=== PATIENT | male | born 1960 | race Caucasian/White ===

== ENCOUNTER 2020-11-13 11:30 | Inpatient (IN) | payer BC ==
[2020-12-01 10:41] VITALS: BMI 27.8
[2020-12-02] MEDS ORDERED: Acetaminophen 500 MG TAB ONE (06:29)
[2020-12-02] MEDS ORDERED: cefOXitin Sodium/Dextrose 2 GM/50 ML BAG ONE (06:29)
[2020-12-02] MEDS ORDERED: Ketorolac Tromethamine 30 MG/ML VIAL ONE ×2 (06:29→10:09)
[2020-12-02] MEDS ORDERED: Lidocaine 1% w/Epinephrine 1:100K 20 ML VIAL ONE ×2 (06:36→08:34)
[2020-12-02] MEDS ORDERED: Bupivacaine 0.25% HCL 30 ML VIAL ONE (06:36)
[2020-12-02] MEDS ORDERED: Fentanyl 100 MCG/2 ML VIAL ONE ×3 (07:03→08:38)
[2020-12-02] MEDS ORDERED: Midazolam HCl 2 mg/2 ml Vial ONE (07:25)
[2020-12-02] MEDS ORDERED: Lidocaine 2% w/Epinephrine 1:200K 20 ML VIAL ONE (07:26)
[2020-12-02] MEDS ORDERED: HYDROmorphone 2 MG/ML VIAL SLOW IVP PRN (07:33)
[2020-12-02] MEDS ORDERED: Morphine Sulfate 2 MG/ML SYRINGE SLOW IVP PRN (07:33)
[2020-12-02] MEDS ORDERED: Promethazine HCl 25 MG/ML VIAL SLOW IVP PRN (07:33)
[2020-12-02] MEDS ORDERED: Promethazine HCl 25 MG/ML VIAL IM PRN ×2 (07:33→11:20)
[2020-12-02] MEDS ORDERED: Ondansetron HCl/PF 4 MG/2 ML Vial IVP PRN (07:33)
[2020-12-02] MEDS ORDERED: PACU-Morphine 4MG/ML VIAL SLOW IVP PRN (07:33)
[2020-12-02] MEDS ORDERED: Fentanyl 250 MCG/5 ML VIAL ONE (08:39)
[2020-12-02] MEDS ORDERED: ceFOXitin 1 GM VIAL ONE (09:45)
[2020-12-02] MEDS ORDERED: Dexamethasone 20 MG/5 ML VIAL ONE (10:09)
[2020-12-02] MEDS ORDERED: Lidocaine 1% PF 5 ML VIAL ONE (10:09)
[2020-12-02] MEDS ORDERED: Glycopyrrolate 0.2 MG/ML 5 ML SYRINGE ONE (10:09)
[2020-12-02] MEDS ORDERED: PHENYLEPHRINE-NS 100 MCG/ML 10 ML SYRINGE ONE (10:09)
[2020-12-02] MEDS ORDERED: PROPOFOL 200 MG/20 ML VIAL ONE (10:09)
[2020-12-02] MEDS ORDERED: Rocuronium Bromide 10 MG/ML (10ML VIAL) ONE (10:09)
[2020-12-02] MEDS ORDERED: Metoprolol Tartrate 5 MG/5 ML VIAL ONE (10:09)
[2020-12-02] MEDS ORDERED: Ondansetron PF 4 MG/2 ML Vial ONE (10:09)
[2020-12-02] MEDS ORDERED: Bupivacaine HCl 0.5%/Epinephrine 1:200,000/PF 30 ml Vial ONE (10:11)
[2020-12-02] MEDS ORDERED: Iopamidol 370 76% 100 ML VIAL ONE (11:00)
[2020-12-02] MEDS ORDERED: hydrALAZINE 20 MG/ML VIAL SLOW IVP PRN (11:20)
[2020-12-02] MEDS ORDERED: Morphine 4 MG/ML VIAL SLOW IVP PRN (11:20)
[2020-12-02] MEDS ORDERED: Morphine 2 MG/ML VIAL SLOW IVP PRN (11:20)
[2020-12-02] MEDS ORDERED: Ondansetron PF 4 MG/2 ML Vial IVP PRN (11:20)
[2020-12-02] MEDS ORDERED: Famotidine/PF 20 mg/2ml Vial SLOW IVP SCH (11:45)
[2020-12-02 15:28] LABS: #Eosinphils 0.1 thou/uL (0.0-0.7); #Lymphocytes 0.8 thou/uL (1.20-3.40); #Monocytes 0.5 thou/uL (0.11-0.59); #Neutrophils 15.3 thou/uL (1.40-6.50); %Eosinophils 0.3 % (0.0-10.0); %Lymphocytes 4.9 % (21.0-51.0); %Monocytes 2.9 % (0.0-10.0); %Neutrophils 91.9 % (42.0-75.0); Hemoglobin 13.2 g/dL (14.0-18.0); Mean Corpuscular HGB CONC 33.9 g/dL (32.0-36.0); Mean Corpuscular Hemoglobin 31.5 pg (27.0-31.0); Mean Corpuscular Volume 92.8 fL (78.0-98.0); Mean Platelet Volume 6.6 fL (7.4-10.4); Platelet Count 494 thou/uL (130-400); RBC Distribution Width 17.1 % (11.5-14.5); Red Blood Cell (RBC) Count 4.18 mill/uL (4.70-6.10); White Blood Cell (WBC) Count 16.6 thou/uL (4.8-10.8)
[2020-12-02 15:41] LABS: Anion Gap 12 mmol/L (10-20); BUN (Urea Nitrogen) 13 mg/dL (8.4-25.7); Calc. Creatinine Clearance 88 mL/min (70-130); Calcium 8.5 mg/dL (7.8-10.44); Carbon Dioxide 27 mmol/L (22-29); Chloride 104 mmol/L (98-107); Glucose 148 mg/dL (70-105); Potassium 4.4 mmol/L (3.5-5.1); Sodium 139 mmol/L (136-145)
[2020-12-02] MEDS: Ketorolac Tromethamine 30 MG/ML VIAL IVP SCH ×3 (17:35→23:36)
[2020-12-02] MEDS: D5 1/2 NS w/20 mEq KCL 1,000 ML IV SCH ×2 (17:46→19:44)
[2020-12-02] MEDS ORDERED: Nicotine 14 MG PATCH TD PRN (17:54)
[2020-12-02] MEDS: HYDROcodone/Acetaminophen 7.5/325 mg Tablet PO PRN (19:31)
[2020-12-02] MEDS: Famotidine/PF 20 mg/2ml Vial SLOW IVP SCH (19:34)
[2020-12-02] MEDS: Famotidine 20 MG TAB PO SCH (19:44)
[2020-12-02] MEDS ORDERED: Enoxaparin Sodium 40 MG/0.4 ML SYRINGE SC SCH (21:00)
[2020-12-03 03:01] LABS: Anion Gap 17 mmol/L (10-20); BUN (Urea Nitrogen) 13 mg/dL (8.4-25.7); Calc. Creatinine Clearance 83 mL/min (70-130); Carbon Dioxide 16 mmol/L (22-29); Chloride 106 mmol/L (98-107); Glucose 202 mg/dL (70-105); Potassium 4.1 mmol/L (3.5-5.1); Sodium 135 mmol/L (136-145)
[2020-12-03 03:01] LABS: #Lymphocytes 1.4 thou/uL (1.20-3.40); #Neutrophils 16.5 thou/uL (1.40-6.50); %Eosinophils 0.1 % (0.0-10.0); %Lymphocytes 7.3 % (21.0-51.0); %Neutrophils 87.6 % (42.0-75.0); Hemoglobin 10.2 g/dL (14.0-18.0); Mean Corpuscular HGB CONC 34.1 g/dL (32.0-36.0); Mean Corpuscular Hemoglobin 31.9 pg (27.0-31.0); Mean Corpuscular Volume 93.5 fL (78.0-98.0); Mean Platelet Volume 6.6 fL (7.4-10.4); Platelet Count 664 thou/uL (130-400); RBC Distribution Width 17.4 % (11.5-14.5); Red Blood Cell (RBC) Count 3.19 mill/uL (4.70-6.10); White Blood Cell (WBC) Count 18.9 thou/uL (4.8-10.8)
[2020-12-03] MEDS: D5 1/2 NS w/20 mEq KCL 1,000 ML IV SCH ×2 (03:52→18:30)
[2020-12-03] MEDS ORDERED: Sodium Chloride 0.9% 1,000 ML IV SCH (05:15)
[2020-12-03] MEDS: Ketorolac Tromethamine 30 MG/ML VIAL IVP SCH ×3 (05:22→18:29)
[2020-12-03] MEDS ORDERED: Promethazine HCl 25 MG/ML VIAL SLOW IVP PRN (06:16)
[2020-12-03] MEDS ORDERED: Ondansetron HCl/PF 4 MG/2 ML Vial IVP PRN (06:16)
[2020-12-03] MEDS ORDERED: Promethazine HCl 25 MG/ML VIAL IM PRN (06:16)
[2020-12-03 06:31] LABS: #Lymphocytes 1.1 thou/uL (1.20-3.40); #Monocytes 1.2 thou/uL (0.11-0.59); %Basophils 0.2 % (0.0-1.0); %Eosinophils 0.1 % (0.0-10.0); %Lymphocytes 6.9 % (21.0-51.0); %Monocytes 7.9 % (0.0-10.0); %Neutrophils 84.8 % (42.0-75.0); Hemoglobin 8.2 g/dL (14.0-18.0); Mean Corpuscular HGB CONC 33.8 g/dL (32.0-36.0); Mean Corpuscular Hemoglobin 31.9 pg (27.0-31.0); Mean Corpuscular Volume 94.2 fL (78.0-98.0); Mean Platelet Volume 6.3 fL (7.4-10.4); Platelet Count 478 thou/uL (130-400); RBC Distribution Width 16.9 % (11.5-14.5); Red Blood Cell (RBC) Count 2.58 mill/uL (4.70-6.10); White Blood Cell (WBC) Count 15.3 thou/uL (4.8-10.8)
[2020-12-03 06:35] LABS: Anion Gap 12 mmol/L (10-20); BUN (Urea Nitrogen) 14 mg/dL (8.4-25.7); Calc. Creatinine Clearance 78 mL/min (70-130); Calcium 7.5 mg/dL (7.8-10.44); Carbon Dioxide 22 mmol/L (22-29); Chloride 107 mmol/L (98-107); Glucose 158 mg/dL (70-105); Potassium 4.9 mmol/L (3.5-5.1); Sodium 136 mmol/L (136-145)
[2020-12-03] MEDS ORDERED: HYDROcodone/Acetaminophen 7.5/325 mg Tablet PO PRN (08:12)
[2020-12-03] MEDS ORDERED: Metoprolol Tartrate 5 MG/5 ML VIAL ONE ×2 (08:13→08:25)
[2020-12-03 09:03] LABS: CKMB 1.9 ng/mL (0-6.6); Troponin I 0.031 ng/mL (< 0.028)
[2020-12-03] MEDS ORDERED: PROPOFOL 200 MG/20 ML VIAL ONE (09:33)
[2020-12-03] MEDS ORDERED: PHENYLEPHRINE-NS 100 MCG/ML 10 ML SYRINGE ONE (09:33)
[2020-12-03] MEDS ORDERED: Lidocaine 1% PF 5 ML VIAL ONE (09:33)
[2020-12-03] MEDS ORDERED: Fentanyl 100 MCG/2 ML VIAL ONE (09:55)
[2020-12-03] MEDS ORDERED: Ketorolac Tromethamine 30 MG/ML VIAL ONE (14:46)
[2020-12-03] MEDS: Famotidine 20 MG TAB PO SCH ×2 (17:44→20:22)
[2020-12-03] MEDS: Famotidine/PF 20 mg/2ml Vial SLOW IVP SCH ×2 (17:44→20:23)
[2020-12-03] MEDS ORDERED: Metoprolol Tartrate 25 MG TAB PO SCH (19:15)
[2020-12-03] MEDS: Dextrose 5 %-0.45 % NaCl 1,000 ML IV SCH (20:13)
[2020-12-04] MEDS: Ketorolac Tromethamine 30 MG/ML VIAL IVP SCH ×5 (00:16→23:58)
[2020-12-04] MEDS: Dextrose 5 %-0.45 % NaCl 1,000 ML IV SCH ×4 (04:21→16:44)
[2020-12-04] MEDS ORDERED: Diltiazem HCl 125 MG, Admixture Fee 1 EACH in Sodium Chloride 0.9% 100 ML IVPB SCH (04:45)
[2020-12-04 05:41] LABS: #Basophils 0.1 thou/uL (0.0-0.2); #Lymphocytes 1.8 thou/uL (1.20-3.40); #Monocytes 0.8 thou/uL (0.11-0.59); #Neutrophils 8.7 thou/uL (1.40-6.50); %Basophils 0.6 % (0.0-1.0); %Eosinophils 0.2 % (0.0-10.0); %Lymphocytes 15.4 % (21.0-51.0); %Monocytes 6.8 % (0.0-10.0); Hemoglobin 8.3 g/dL (14.0-18.0); Mean Corpuscular Hemoglobin 32.6 pg (27.0-31.0); Mean Corpuscular Volume 93.2 fL (78.0-98.0); Mean Platelet Volume 6.8 fL (7.4-10.4); Platelet Count 481 thou/uL (130-400); Red Blood Cell (RBC) Count 2.56 mill/uL (4.70-6.10); White Blood Cell (WBC) Count 11.3 thou/uL (4.8-10.8)
[2020-12-04 05:50] LABS: Anion Gap 10 mmol/L (10-20); BUN (Urea Nitrogen) 11 mg/dL (8.4-25.7); Calc. Creatinine Clearance 123 mL/min (70-130); Calcium 8.1 mg/dL (7.8-10.44); Carbon Dioxide 23 mmol/L (22-29); Chloride 109 mmol/L (98-107); Glucose 122 mg/dL (70-105); Potassium 4.1 mmol/L (3.5-5.1); Sodium 138 mmol/L (136-145)
[2020-12-04] MEDS: Metoprolol Tartrate 25 MG TAB PO SCH ×2 (09:19→21:33)
[2020-12-04] MEDS: Famotidine 20 MG TAB PO SCH ×2 (09:19→21:32)
[2020-12-04] MEDS: Famotidine/PF 20 mg/2ml Vial SLOW IVP SCH (09:21)
[2020-12-04] MEDS ORDERED: Amiodarone 150 MG in Dextrose 5% in Water 100 ML IVPB SCH (10:15)
[2020-12-04] MEDS: Amiodarone 450 MG, Admixture Fee 1 EACH in Dextrose 5% in Water 250 ML IVPB SCH ×2 (11:22→21:37)
[2020-12-04] MEDS: Ferrous Sulfate 325 MG TAB PO SCH (16:41)
[2020-12-04] MEDS: HYDROcodone/Acetaminophen 7.5/325 mg Tablet PO PRN (21:35)
[2020-12-05 05:04] LABS: #Eosinphils 0.1 thou/uL (0.0-0.7); #Lymphocytes 1.2 thou/uL (1.20-3.40); #Monocytes 0.4 thou/uL (0.11-0.59); #Neutrophils 4.3 thou/uL (1.40-6.50); %Basophils 0.4 % (0.0-1.0); %Lymphocytes 19.8 % (21.0-51.0); %Monocytes 6.7 % (0.0-10.0); %Neutrophils 72.1 % (42.0-75.0); Hemoglobin 6.5 g/dL (14.0-18.0); Mean Corpuscular HGB CONC 34.9 g/dL (32.0-36.0); Mean Corpuscular Hemoglobin 32.4 pg (27.0-31.0); Mean Corpuscular Volume 92.9 fL (78.0-98.0); Mean Platelet Volume 6.6 fL (7.4-10.4); Platelet Count 329 thou/uL (130-400); RBC Distribution Width 16.5 % (11.5-14.5); Red Blood Cell (RBC) Count 2.01 mill/uL (4.70-6.10)
[2020-12-05 05:08] LABS: Anion Gap 11 mmol/L (10-20); BUN (Urea Nitrogen) 6 mg/dL (8.4-25.7); Calc. Creatinine Clearance 134 mL/min (70-130); Calcium 7.8 mg/dL (7.8-10.44); Carbon Dioxide 24 mmol/L (22-29); Chloride 106 mmol/L (98-107); Glucose 116 mg/dL (70-105); Potassium 3.8 mmol/L (3.5-5.1); Sodium 137 mmol/L (136-145)
[2020-12-05] MEDS: Ketorolac Tromethamine 30 MG/ML VIAL IVP SCH (05:42)
[2020-12-05] MEDS: Ferrous Sulfate 325 MG TAB PO SCH ×2 (09:33→17:16)
[2020-12-05] MEDS: Amiodarone 200 MG TAB PO SCH ×2 (09:34→21:15)
[2020-12-05] MEDS: Famotidine 20 MG TAB PO SCH ×2 (09:34→21:14)
[2020-12-05] MEDS ORDERED: Potassium Chloride 20 MEQ TAB PO SCH (17:00)
[2020-12-05] MEDS: Dextrose 5 %-0.45 % NaCl 1,000 ML IV SCH (17:03)
[2020-12-06 04:57] LABS: #Eosinphils 0.2 thou/uL (0.0-0.7); #Lymphocytes 1.4 thou/uL (1.20-3.40); #Monocytes 0.5 thou/uL (0.11-0.59); #Neutrophils 5.3 thou/uL (1.40-6.50); %Basophils 0.2 % (0.0-1.0); %Lymphocytes 18.8 % (21.0-51.0); Hemoglobin 7.4 g/dL (14.0-18.0); Mean Corpuscular Hemoglobin 33.1 pg (27.0-31.0); Mean Platelet Volume 7.1 fL (7.4-10.4); Platelet Count 361 thou/uL (130-400); Red Blood Cell (RBC) Count 2.23 mill/uL (4.70-6.10); White Blood Cell (WBC) Count 7.5 thou/uL (4.8-10.8)
[2020-12-06] MEDS: Amiodarone 200 MG TAB PO SCH (09:25)
[2020-12-06] MEDS: Ferrous Sulfate 325 MG TAB PO SCH (09:26)
[2020-12-06] MEDS: Famotidine 20 MG TAB PO SCH (09:26)
[2020-12-06 12:49] VITALS: BP 111/72; TEMP 98.6
== END 2020-12-06 13:31 | disposition home or self-care (01) | DRG 330 ==
LOC: EDSEX → MERGE 11-18 11:30 → SURG A 12-02 06:04 → 2NO 12-03 16:48
PROVIDERS: ADMIT Specialist; ATTEND Specialist
PROC: 0DBN0ZZ Excision of Sigmoid Colon, Open Approach (ICD-10-PCS; principal; 2020-12-02)
PROC: 0W3P8ZZ Control Bleeding in Gastrointestinal Tract, Via Natural or Artificial Opening Endoscopic (ICD-10-PCS; 2020-12-03)
PROC: 30233N1 Transfusion of Nonautologous Red Blood Cells into Peripheral Vein, Percutaneous Approach (ICD-10-PCS; 2020-12-03)
DX: K57.32 Diverticulitis of large intestine without perforation or abscess without bleeding (principal); D62 Acute posthemorrhagic anemia; K91.840 Postprocedural hemorrhage of a digestive system organ or structure following a digestive system procedure; I48.92 Unspecified atrial flutter; Y83.2 Surgical operation with anastomosis, bypass or graft as the cause of abnormal reaction of the patient, or of later complication, without mention of misadventure at the time of the procedure; R31.9 Hematuria, unspecified; R00.1 Bradycardia, unspecified; I48.0 Paroxysmal atrial fibrillation; I10 Essential (primary) hypertension; G47.33 Obstructive sleep apnea (adult) (pediatric); Z87.891 Personal history of nicotine dependence; Z79.899 Other long term (current) drug therapy; Z79.82 Long term (current) use of aspirin
CPT/HCPCS: 36415; 36416; 36430; 74177; 80048; 82550; 82553; 84484; 85025; 86850; 86900; 86901; 88307; 93005; 93010; J0282; J0694; J1100; J1885; J2250; J2405; J2704; J3010; J3480; J3490; J7070; P9016; Q9967; S0020; S0028

== ENCOUNTER 2020-11-27 12:17 | Outpatient (CLI) | payer BC ==
[2020-11-13 14:57] LABS: #Eosinphils 0.1 10x3/uL (0.0-0.5); #Monocytes 0.3 10x3/uL (0.0-1.1); #Neutrophils 4.7 10x3/uL (1.5-8.4); %Basophils 0.3 % (0.0-2.0); %Eosinophils 1.1 % (0.0-6.0); %Lymphocytes 17.4 % (18.0-47.0); %Monocytes 4.6 % (0.0-10.0); Hemoglobin 12.7 g/dL (13.5-17.5); Mean Corpuscular HGB CONC 33.2 g/dL (32.0-36.0); Mean Corpuscular Hemoglobin 30.2 pg (27.0-33.0); Mean Platelet Volume 9.3 fl (7.4-10.4); Platelet Count 354 10x3/uL (150-450); RBC Distribution Width 16.6 % (11.5-14.5); White Blood Cell (WBC) Count 6.3 10x3/uL (3.5-10.5)
[2020-11-13 15:37] LABS: ALT (SGPT) 34 U/L (8-55); AST (SGOT) 18 U/L (5-34); Albumin 4.9 g/dL (3.5-5.0); Alkaline Phosphatase 66 U/L (40-110); Anion Gap 13 mmol/L (10-20); BUN (Urea Nitrogen) 11 mg/dL (8.4-25.7); Bilirubin, Total 1.3 mg/dL (0.2-1.2); Calc. Creatinine Clearance 0 mL/min (70-130); Calcium 9.5 mg/dL (7.8-10.44); Carbon Dioxide 27 mmol/L (22-29); Chloride 103 mmol/L (98-107); Glucose 98 mg/dL (70-105); Potassium 5.1 mmol/L (3.5-5.1); Protein, Total 6.9 g/dL (6.0-8.3); Sodium 138 mmol/L (136-145)
[2020-11-14 02:58] LABS: SARS-CoV-2 PCR by NAA Not Detected (NotDetected)
--- NOTE | 2020-11-19 15:15 | EKG ---
Test Reason : Blood Pressure : / mmHG Vent. Rate : 063 BPM Atrial Rate : 063 BPM P-R Int : 170 ms QRS Dur : 096 ms QT Int : 432 ms P-R-T Axes : 063 032 065 degrees QTc Int : 442 ms Sinus rhythm with Premature atrial complexes Incomplete right bundle branch block Borderline ECG No previous ECGs available Confirmed by DALY BRAN (2) on 11/19/2020 3:15:40 PM Referred By: [email or web address] Confirmed By:DALY BRAN
[2020-11-27 22:37] LABS: SARS-CoV-2 PCR by NAA Not Detected (NotDetected)
== END 2020-11-27 12:18 | disposition home or self-care (01) ==
LOC: EDSEX → LABBT 12:17
PROVIDERS: ATTEND Specialist
DX: Z01.818 Encounter for other preprocedural examination (principal); K57.92 Diverticulitis of intestine, part unspecified, without perforation or abscess without bleeding; Z20.822 Contact with and (suspected) exposure to COVID-19
CPT/HCPCS: 80053; 83036; 85025; 87635; 93005; 93010; U0003; U0005